=== PATIENT | male | born 1935 | race Caucasian/White ===

== ENCOUNTER 2017-07-09 18:01 | Inpatient (IN) | payer OTHER, BC ==
[~2017-07-09] VITALS: Ht 177.8 cm; Wt 85.7 kg
[~2017-07-09 18:01] MED LIST: ALLEGRA180 MG PO; AMOXICILLIN875 MG PO; AUGMENTIN875 MG PO; BENICAR HCT 201 EACH PO; BENICAR40 MG PO; CALAN SR,COVER240 MG PO; CICLODAN 8% K34.6 ML TP; CLONAZEPAM1 MG PO; CLOPIDOGREL75 MG PO; Cardura PO; Colace PO; DOXAZOSIN MESYLA4 MG PO; FLONASE16 G1 BOTH NARES; FLUTICASONE PRO30 GM IH; Flonase BOTH NARES; Glucotrol PO; JANTOVEN2.5 MG PO; LISINOPRIL10 MG PO; LOPRESSOR25 MG PO; LOSARTAN POTAS100 MG PO; Lopressor PO; MACROBID100 MG PO; METFORMIN HCL1000 MG PO; METOPROLOL TART25 MG PO; METOPROLOL TART50 MG PO; NIACIN500 M1 PO; NITROSTAT,NITR0.4 M1 SL; NORVASC5 MG PO; Oyst-Cal D, Oscal W/ PO; PERCOCET 5/31 TABLET PO; POTASSIUM CHLO20 MEQ PO; PRADAXA75 MG PO; PRAVACHOL20 MG PO; PRAVACHOL40 MG PO; Protonix PO; THERAGRAN1 TABLET PO; Tylenol Regular Stre PO; VERAPAMIL HCL240 M2 PO; VERELAN 240 MG240 MG PO; VITAMIN D-32000 UNI2 PO; VITAMIN E200 UNIT PO; ZANAFLEX4 MG PO; ZESTRIL,PRINIVI40 MG PO; predniSONE PO
[2017-07-09 18:37] LABS: ADD MIUA? YES; BILIRUBIN NEGATIVE; BLOOD NEGATIVE; COLOR YELLOW ((YELLOW)); GLUCOSE (STRIP) 50; KETONES NEGATIVE; LEUKOCYTES NEGATIVE; NITRITE NEGATIVE; PROTEIN (STRIP) >=500; SPECIFIC GRAVITY 1.015 (1.000-1.030); UROBILINOGEN 0.2 MG/DL (0.2-1.0)
[2017-07-09 18:45] LABS: BACTERIA RARE /HPF; EPITHELIAL CELLS RARE /HPF; MUCUS TRACE /LPF; RED BLOOD CELLS 0-5 /HPF (0-5); UCUL ADDED? NO; WHITE BLOOD CELLS 0-5 /HPF (0-5)
[2017-07-09 18:54] LABS: CHLORIDE 106 mEq/L (99-109); INTER. NORMALIZED RATIO 1.8; POTASSIUM 3.9 mEq/L (3.7-5.4); PROTHROMBIN TIME 20.4 SEC (10.2-12.9); SODIUM 143 mEq/L (136-147)
[2017-07-09 18:56] LABS: GLUCOSE 184 mg/dL (70-99); PTT 32.1 SEC (25-37)
[2017-07-09 18:58] LABS: ANION GAP 18 MEQ/L (2-14); HEMATOCRIT 44.5 % (38.0-50.0); MCH 28.6 PG (29.0-34.0); MCHC 32.4 G/DL (30.0-36.0); MCV 88.3 FL (86-99); RBC DIS.WIDTH-CV 14.1 % (11.8-14.6); RBC DIS.WIDTH-SD 45.3 % (39-53); RED BLOOD COUNT 5.04 M/uL (4.00-5.50); TOTAL BILIRUBIN 0.8 mg/dL (0.0-1.0); WHITE BLOOD COUNT 16.1 K/uL (4.1-10.2)
[2017-07-09 19:00] LABS: ALKALINE PHOSPHATASE 54 IU/L (3-129); GFR ESTIMATE (CALCULATED) 24 mL/min/
[2017-07-09 19:01] LABS: UREA NITROGEN (BUN) 42 mg/dL (9-23)
[2017-07-09 19:06] LABS: TROP-I INTERPRETATION NEGATIVE; TROPONIN-I 0.17 ng/mL (0.0-0.30)
[2017-07-09 19:57] LABS: EOSINOPHIL (%) 0.1 % (0-5); HEMATOLOGY COMMENT 1 SN; IMM.PLATELET FRACTION 23.8 (1-7); IMMATURE GRANULOCYTE (%) 0.7 % (0.0-0.7); IMMATURE GRANULOCYTE COUNT 0.1 K/uL; INSTRUMENT ABS NEUTROPHIL CT 14.4 K/uL; LYMPHOCYTE COUNT 0.5 K/uL (1.0-2.8); NEUTROPHIL (%) 89.6 % (45-76); NEUTROPHIL COUNT 14.4 K/uL (1.8-6.4); PLAT.SUFFICIENCY DECREASED; PLATELET COUNT 49 K/uL (156-360)
[2017-07-09 21:17] LABS: INFLUENZA A VIRAL ANTIGEN NEGATIVE; INFLUENZA B VIRAL ANTIGEN NEGATIVE
[2017-07-09 23:45] VITALS: BP 130/61
[2017-07-10 04:58] VITALS: BP 99/52
[2017-07-10 08:01] VITALS: BP 96/50
[2017-07-10 11:55] LABS: INTER. NORMALIZED RATIO 1.8; PROTHROMBIN TIME 20.5 SEC (10.2-12.9)
[2017-07-10 15:57] VITALS: BP 126/67
[2017-07-11 00:34] VITALS: BP 108/54
[2017-07-11 00:46] LABS: POINT-OF-CARE METER ID UU14208753; POINT-OF-CARE USER ID 606021424
[2017-07-11 04:17] VITALS: BP 135/58
[2017-07-11 06:36] LABS: INTER. NORMALIZED RATIO 1.6; PROTHROMBIN TIME 17.7 SEC (10.2-12.9)
[2017-07-11 06:37] LABS: ANION GAP 10 MEQ/L (2-14); CHLORIDE 110 MEQ/L (99-109); EOSINOPHIL (%) 0 % (0-5); GFR ESTIMATE (CALCULATED) 26 mL/min/; GLUCOSE 170 mg/dL (70-99); HEMATOCRIT 34.3 % (38.0-50.0); IMMATURE GRANULOCYTE (%) 1.5 % (0.0-0.7); IMMATURE GRANULOCYTE COUNT 0.1 K/uL; INSTRUMENT ABS NEUTROPHIL CT 4.1 K/uL; LYMPHOCYTE COUNT 0.9 K/uL (1.0-2.8); MCH 29.2 PG (29.0-34.0); MCHC 33.2 G/DL (30.0-36.0); MCV 87.9 FL (86-99); NEUTROPHIL COUNT 4.1 K/uL (1.8-6.4); POTASSIUM 3.7 MEQ/L (3.7-5.4); RBC DIS.WIDTH-CV 14.5 % (11.8-14.6); RBC DIS.WIDTH-SD 46.5 % (39-53); SAMPLE HEMOLYSIS CHECK 0; SAMPLE ICTERIC CHECK 0; SAMPLE LIPEMIA CHECK 0; SODIUM 142 MEQ/L (136-147); UREA NITROGEN (BUN) 52 mg/dL (9-23); WHITE BLOOD COUNT 6.1 K/uL (4.1-10.2)
[2017-07-11 06:44] LABS: IMM.PLATELET FRACTION 21.2 (1-7); PLAT.SUFFICIENCY DECREASED
[2017-07-11 06:46] LABS: PLATELET COUNT 20 K/uL (156-360)
[2017-07-11 07:08] VITALS: BP 114/53
[2017-07-11 12:27] LABS: HEMATOCRIT 35.6 % (38.0-50.0); MCH 28.9 PG (29.0-34.0); MCHC 32.9 G/DL (30.0-36.0); MCV 87.9 FL (86-99); RBC DIS.WIDTH-CV 14.4 % (11.8-14.6); RBC DIS.WIDTH-SD 46.8 % (39-53); RED BLOOD COUNT 4.05 M/uL (4.00-5.50); WHITE BLOOD COUNT 6.4 K/uL (4.1-10.2)
[2017-07-11 12:44] LABS: IMM.PLATELET FRACTION 21.6 (1-7); PLAT.SUFFICIENCY DECREASED; PLATELET COUNT 19 K/uL (156-360)
[2017-07-11 15:12] VITALS: BP 145/71
[2017-07-11 23:12] VITALS: BP 136/71
[2017-07-12 07:28] VITALS: BP 130/83
[2017-07-12 07:30] LABS: INTER. NORMALIZED RATIO 2.3; PROTHROMBIN TIME 26.6 SEC (10.2-12.9)
[2017-07-12 08:18] LABS: HEMATOCRIT 32.2 % (38.0-50.0); MCH 29.4 PG (29.0-34.0); MCHC 33.5 G/DL (30.0-36.0); MCV 87.7 FL (86-99); RBC DIS.WIDTH-CV 14.6 % (11.8-14.6); RBC DIS.WIDTH-SD 47.3 % (39-53); RED BLOOD COUNT 3.67 M/uL (4.00-5.50)
[2017-07-12 08:23] LABS: ANION GAP 10 MEQ/L (2-14); CHLORIDE 109 MEQ/L (99-109); GFR ESTIMATE (CALCULATED) 31 mL/min/; GLUCOSE 209 mg/dL (70-99); POTASSIUM 3.8 MEQ/L (3.7-5.4); SAMPLE HEMOLYSIS CHECK 0; SAMPLE ICTERIC CHECK 0; SAMPLE LIPEMIA CHECK 0; SODIUM 139 MEQ/L (136-147); UREA NITROGEN (BUN) 49 mg/dL (9-23)
[2017-07-12 08:37] LABS: IMM.PLATELET FRACTION 28.6 (1-7); PLAT.SUFFICIENCY VERY DECREASED
[2017-07-12 08:38] LABS: PLATELET COUNT 18 K/uL (156-360)
[2017-07-12] MEDS ORDERED: RANITIDINE HCL75 MG PO (15:20)
[2017-07-12] MEDS ORDERED: DIOVAN320 MG PO (15:21)
[2017-07-12] MEDS ORDERED: K-DUR20 MEQ PO (15:23)
[2017-07-12] MEDS ORDERED: VITAMIN C1000 MG PO (15:24)
[2017-07-12] MEDS ORDERED: LIPOIC ACID PO (15:25)
[2017-07-12] MEDS ORDERED: CHROMIUM PIC1000 MCG PO (15:26)
[2017-07-12] MEDS ORDERED: LUTEIN20 MG PO (15:26)
[2017-07-12] MEDS ORDERED: VITAMIN E400 UNIT PO (15:27)
[2017-07-12 15:36] VITALS: BP 143/71
[2017-07-12 21:20] LABS: BASE EXCESS -4.7 mEq/L (-3 to +3); BICARBONATE 18.8 mEq/L (22-26); CARBOXY HGB 1.6 % (0-5); METHEMOGLOBIN 1.8 % (0-1.5); PCO2 29 mm Hg (35-45); PO2 60 mm Hg (80-100); pH 7.42 (7.35-7.45)
[2017-07-12 21:21] LABS: COMMENTS - BLOOD GASES C+; DEVICE NCH; O2 FLOW 15 L/MIN; SITE RR
[2017-07-12 21:22] LABS: TOTAL RESP RATE 27 resp/min
[2017-07-12 23:39] VITALS: BP 126/61
[2017-07-13] VITALS (8 sets, daily range): BP systolic 108–156; BP diastolic 60–70
[2017-07-13 07:10] LABS: INTER. NORMALIZED RATIO 2.7; PROTHROMBIN TIME 31.2 SEC (10.2-12.9)
[2017-07-14 07:04] LABS: INTER. NORMALIZED RATIO 2.2; PROTHROMBIN TIME 25.2 SEC (10.2-12.9)
[2017-07-14 07:20] VITALS: BP 114/59
[2017-07-14 09:05] LABS: MCH 28.5 PG (29.0-34.0); MCHC 32.3 G/DL (30.0-36.0); MCV 88.2 FL (86-99); RBC DIS.WIDTH-CV 14.6 % (11.8-14.6); RBC DIS.WIDTH-SD 47.7 % (39-53); WHITE BLOOD COUNT 7.8 K/uL (4.1-10.2)
[2017-07-14 09:32] LABS: IMM.PLATELET FRACTION 25.1 (1-7); PLAT.SUFFICIENCY DECREASED
[2017-07-14 09:38] LABS: PLATELET COUNT 45 K/uL (156-360)
[2017-07-14 10:11] LABS: ANION GAP 11 MEQ/L (2-14); CHLORIDE 108 MEQ/L (99-109); GFR ESTIMATE (CALCULATED) 32 mL/min/; GLUCOSE 146 mg/dL (70-99); POTASSIUM 3.2 MEQ/L (3.7-5.4); SAMPLE HEMOLYSIS CHECK 0; SAMPLE ICTERIC CHECK 0; SAMPLE LIPEMIA CHECK 0; SODIUM 140 MEQ/L (136-147); UREA NITROGEN (BUN) 39 mg/dL (9-23)
[2017-07-14 11:12] VITALS: BP 113/60
[2017-07-14 16:07] VITALS: BP 146/67
[2017-07-14 23:24] VITALS: BP 121/62
[2017-07-15 07:27] LABS: HEMATOCRIT 28.4 % (38.0-50.0); IMM.RETIC FRACTION 22.3 % (3-19); MCH 28.1 PG (29.0-34.0); MCV 87.7 FL (86-99); MEAN PLAT.VOLUME 14.4 uM^3 (9.0-12.4); PLATELET COUNT 58 K/uL (156-360); RBC DIS.WIDTH-CV 14.6 % (11.8-14.6); RED BLOOD COUNT 3.24 M/uL (4.00-5.50); RETIC HGB EQUIVALENT 26.9 (28-36); RETICULOCYTE COUNT 0.9 % (0.5-1.8); WHITE BLOOD COUNT 9.3 K/uL (4.1-10.2)
[2017-07-15 07:33] LABS: INTER. NORMALIZED RATIO 1.7
[2017-07-15 07:52] LABS: ALKALINE PHOSPHATASE 46 IU/L (3-129); ANION GAP 10 MEQ/L (2-14); CHLORIDE 110 MEQ/L (99-109); DIRECT BILIRUBIN 0.1 mg/dL (0.0-0.3); GFR ESTIMATE (CALCULATED) 36 mL/min/; GLUCOSE 139 mg/dL (70-99); LACTATE DEHYDROGENASE 266 IU/L (20-246); POTASSIUM 3.5 MEQ/L (3.7-5.4); SAMPLE HEMOLYSIS CHECK 0; SAMPLE ICTERIC CHECK 0; SAMPLE LIPEMIA CHECK 0; SODIUM 142 MEQ/L (136-147); TOTAL BILIRUBIN 0.5 MG/DL (0.0-1.0); UREA NITROGEN (BUN) 37 mg/dL (9-23)
[2017-07-15 08:02] VITALS: BP 140/55
[2017-07-15 10:49] LABS: HIV INDEX 0.07; HIV-1/2 AB/AG COMBO Nonreactive; HPCA INDEX 0.13
[2017-07-15 11:57] VITALS: BP 128/62
[2017-07-15 16:23] VITALS: BP 148/65
[2017-07-15 20:20] VITALS: BP 136/56
[2017-07-16 00:09] VITALS: BP 158/70
[2017-07-16 06:47] LABS: HEMATOCRIT 27.6 % (38.0-50.0); MCH 28.3 PG (29.0-34.0); MCHC 32.2 G/DL (30.0-36.0); MCV 87.6 FL (86-99); MEAN PLAT.VOLUME 14.3 uM^3 (9.0-12.4); RBC DIS.WIDTH-CV 14.6 % (11.8-14.6); RED BLOOD COUNT 3.15 M/uL (4.00-5.50)
[2017-07-16 06:49] LABS: PLATELET COUNT 78 K/uL (156-360)
[2017-07-16 06:58] LABS: INTER. NORMALIZED RATIO 1.5
[2017-07-16 07:11] LABS: ANION GAP 9 MEQ/L (2-14); CHLORIDE 108 MEQ/L (99-109); GFR ESTIMATE (CALCULATED) 41 mL/min/; GLUCOSE 134 mg/dL (70-99); POTASSIUM 3.5 MEQ/L (3.7-5.4); SAMPLE HEMOLYSIS CHECK 0; SAMPLE ICTERIC CHECK 0; SAMPLE LIPEMIA CHECK 0; SODIUM 141 MEQ/L (136-147); UREA NITROGEN (BUN) 28 mg/dL (9-23)
[2017-07-16 07:38] LABS: ABS NEUTROPHIL COUNT 5.9; ANISOCYTOSIS 1+; BAND NEUTROPHILS 5.3 % (0-8.0); EOSINOPHIL ABS CT 0.1; EOSINOPHILS 0.9 % (0-5.0); INSTRUMENT ABS NEUTROPHIL CT 4.2 K/uL; LYMPHOCYTES 14.9 % (15.0-45.0); METAMYELOCYTES 0.9 %; MYELOCYTES 3.5 %; PLAT.SUFFICIENCY DECREASED; SEG.NEUTROPHILS 53.5 % (46.0-76.0)
[2017-07-16 08:27] VITALS: BP 163/74
[2017-07-16 12:29] VITALS: BP 187/82
[2017-07-16] MEDS ORDERED: ROCEPHIN500 MG IM (12:52)
[2017-07-16 16:30] VITALS: BP 170/77
[2017-07-16] MEDS ORDERED: GUAIFENESIN600 M1 PO (18:19)
[2017-07-16] MEDS ORDERED: DUONEB 2.5-0.5 M3 ML AEROSOL (18:20)
[2017-07-16] MEDS ORDERED: PEPCID20 MG PO (18:21)
[2017-07-16] MEDS ORDERED: TUMS500 MG PO (18:22)
[2017-07-16] MEDS ORDERED: COUMADIN2 MG PO (18:23)
[2017-07-16] MEDS ORDERED: PLAVIX75 MG PO (18:23)
[2017-07-16] MEDS ORDERED: NON-ASPIRIN325 MG PO (18:24)
[2017-07-26] MEDS ORDERED: COUMADIN2 MG PO (19:46)
[2017-07-26] MEDS ORDERED: FUROSEMIDE20 MG PO (19:46)
== END 2017-07-16 17:33 | DRG 871 ==
LOC: EME 18:01 → EDOF 20:39 → 3EAST 20:39 → ENRESERV 20:47 → 3EAST 23:38
PROVIDERS: Emergency Medicine; Family Medicine; Hospitalist; Internal Medicine; Physician Assistant
PROC: 30233R1 Transfusion of Nonautologous Platelets into Peripheral Vein, Percutaneous Approach (ICD-10-PCS; principal; 2017-07-13)
DX: A41.01 Sepsis due to Methicillin susceptible Staphylococcus aureus (principal); J15.211 Pneumonia due to Methicillin susceptible Staphylococcus aureus; R65.20 Severe sepsis without septic shock; G93.41 Metabolic encephalopathy; N17.9 Acute kidney failure, unspecified; J96.01 Acute respiratory failure with hypoxia; D69.59 Other secondary thrombocytopenia; E87.2 Acidosis; E87.70 Fluid overload, unspecified; I13.10 Hypertensive heart and chronic kidney disease without heart failure, with stage 1 through stage 4 chronic kidney disease, or unspecified chronic kidney disease; N18.2 Chronic kidney disease, stage 2 (mild); J44.0 Chronic obstructive pulmonary disease with (acute) lower respiratory infection; E11.22 Type 2 diabetes mellitus with diabetic chronic kidney disease; J98.11 Atelectasis; I25.10 Atherosclerotic heart disease of native coronary artery without angina pectoris; I48.0 Paroxysmal atrial fibrillation; E78.2 Mixed hyperlipidemia; K21.9 Gastro-esophageal reflux disease without esophagitis; N40.0 Benign prostatic hyperplasia without lower urinary tract symptoms; E66.9 Obesity, unspecified; Z68.27 Body mass index [BMI] 27.0-27.9, adult; Z79.01 Long term (current) use of anticoagulants; Z79.02 Long term (current) use of antithrombotics/antiplatelets; Z95.3 Presence of xenogenic heart valve; Z85.828 Personal history of other malignant neoplasm of skin; Z82.3 Family history of stroke; Z82.49 Family history of ischemic heart disease and other diseases of the circulatory system; Z83.3 Family history of diabetes mellitus; Z88.1 Allergy status to other antibiotic agents; Z88.2 Allergy status to sulfonamides
CPT/HCPCS: 36600; 70450; 71010; 71250; 74176; 80048; 80053; 80076; 81003; 82272; 82803; 82948; 83010 90; 83605; 83615; 84484; 85025; 85027; 85045; 85610; 85730; 86703; 86803; 86850; 86900; 86901; 87040; 87070; 87077; 87186; 87205; 87502; 87801; 93005; 93306; 94640; 94640 76; 94667; 94668; 94760; 94799; 99202; 99281; 99285; J0456; J0690; J0696; J1940; J2060; J3480; J7050; J7120; P9037; S0028

== ENCOUNTER 2017-07-29 19:53 | Inpatient (IN) | payer OTHER, BC ==
[~2017-07-29] VITALS: Ht 165.1 cm; Wt 84.7 kg
[~2017-07-29 19:53] MED LIST changes: +CHROMIUM PIC1000 MCG PO; +COUMADIN2 MG PO; +DIOVAN320 MG PO; +DUONEB 2.5-0.5 M3 ML AEROSOL; +FUROSEMIDE20 MG PO; +GUAIFENESIN600 M1 PO; +K-DUR20 MEQ PO; +LIPOIC ACID PO; +LUTEIN20 MG PO; +NON-ASPIRIN325 MG PO; +PEPCID20 MG PO; +PLAVIX75 MG PO; +RANITIDINE HCL75 MG PO; +ROCEPHIN500 MG IM; +TUMS500 MG PO; +VITAMIN C1000 MG PO; +VITAMIN E400 UNIT PO
[2017-07-29 21:21] LABS: EOSINOPHIL (%) 0.2 % (0-5); HEMATOCRIT 29.4 % (38.0-50.0); IMMATURE GRANULOCYTE (%) 1.3 % (0.0-0.7); IMMATURE GRANULOCYTE COUNT 0.1 K/uL; INSTRUMENT ABS NEUTROPHIL CT 4.4 K/uL; LYMPHOCYTE COUNT 0.5 K/uL (1.0-2.8); MCH 27.3 PG (29.0-34.0); MCHC 32.3 G/DL (30.0-36.0); MCV 84.5 FL (86-99); MEAN PLAT.VOLUME 12.5 uM^3 (9.0-12.4); MONOCYTE (%) 20.3 % (3-12); MONOCYTE COUNT 1.3 K/uL (0-0.8); NEUTROPHIL (%) 70.8 % (45-76); NEUTROPHIL COUNT 4.4 K/uL (1.8-6.4); PLATELET COUNT 95 K/uL (156-360); RBC DIS.WIDTH-SD 43.1 % (39-53); RED BLOOD COUNT 3.48 M/uL (4.00-5.50); WHITE BLOOD COUNT 6.3 K/uL (4.1-10.2)
[2017-07-29 21:37] LABS: CHLORIDE 106 mEq/L (99-109); POTASSIUM 4.2 mEq/L (3.7-5.4); SODIUM 137 mEq/L (136-147)
[2017-07-29 21:40] LABS: GLUCOSE 149 mg/dL (70-99)
[2017-07-29 21:41] LABS: ANION GAP 11 MEQ/L (2-14)
[2017-07-29 21:42] LABS: TOTAL BILIRUBIN 0.5 mg/dL (0.0-1.0)
[2017-07-29 21:43] LABS: ALKALINE PHOSPHATASE 54 IU/L (3-129)
[2017-07-29 21:44] LABS: GFR ESTIMATE (CALCULATED) 39 mL/min/
[2017-07-29 21:45] LABS: DIRECT BILIRUBIN 0.3 mg/dL (0.0-0.3); UREA NITROGEN (BUN) 31 mg/dL (9-23)
[2017-07-29 22:58] LABS: ADD MIUA? YES; BILIRUBIN NEGATIVE; BLOOD SMALL; COLOR YELLOW ((YELLOW)); GLUCOSE (STRIP) 50; KETONES 5; LEUKOCYTES NEGATIVE; NITRITE NEGATIVE; PROTEIN (STRIP) 100; SPECIFIC GRAVITY 1.013 (1.000-1.030); UROBILINOGEN 0.2 MG/DL (0.2-1.0)
[2017-07-29 23:17] LABS: BACTERIA RARE /HPF; EPITHELIAL CELLS RARE /HPF; MUCUS NONE SEEN /LPF; RED BLOOD CELLS RARE /HPF (0-5); UCUL ADDED? NO; WHITE BLOOD CELLS 0-5 /HPF (0-5)
[2017-07-29 23:18] LABS: CRYSTALS PRESENT
[2017-07-29 23:19] LABS: AMORPHOUS URATES CRYSTALS 3+; CASTS PRESENT /LPF; HYALINE CASTS 0-5 /LPF
[2017-07-30 00:15] LABS: INTER. NORMALIZED RATIO 1.4
[2017-07-30 02:55] VITALS: BP 95/45
[2017-07-30 06:54] LABS: POINT-OF-CARE METER ID UU14117124
[2017-07-30 07:08] LABS: HEMATOCRIT 27.2 % (38.0-50.0); MCH 27.4 PG (29.0-34.0); MCV 85.8 FL (86-99); RBC DIS.WIDTH-SD 44.1 % (39-53); RED BLOOD COUNT 3.17 M/uL (4.00-5.50); WHITE BLOOD COUNT 9.1 K/uL (4.1-10.2)
[2017-07-30 07:31] LABS: EOSINOPHIL (%) 0.1 % (0-5); IMMATURE GRANULOCYTE (%) 1.4 % (0.0-0.7); IMMATURE GRANULOCYTE COUNT 0.1 K/uL; INSTRUMENT ABS NEUTROPHIL CT 6.2 K/uL; LYMPHOCYTE COUNT 0.9 K/uL (1.0-2.8); MONOCYTE COUNT 1.8 K/uL (0-0.8); NEUTROPHIL (%) 68.5 % (45-76); NEUTROPHIL COUNT 6.2 K/uL (1.8-6.4)
[2017-07-30 07:32] LABS: MEAN PLAT.VOLUME 13.4 uM^3 (9.0-12.4); PLATELET COUNT 83 K/uL (156-360)
[2017-07-30 08:14] VITALS: BP 128/81
[2017-07-30 08:18] LABS: ALKALINE PHOSPHATASE 41 IU/L (3-129); ANION GAP 11 MEQ/L (2-14); CHLORIDE 110 MEQ/L (99-109); GFR ESTIMATE (CALCULATED) 36 mL/min/; GLUCOSE 139 mg/dL (70-99); POTASSIUM 4.2 MEQ/L (3.7-5.4); SAMPLE HEMOLYSIS CHECK 0; SAMPLE ICTERIC CHECK 0; SAMPLE LIPEMIA CHECK 0; SODIUM 139 MEQ/L (136-147); TOTAL BILIRUBIN 0.4 MG/DL (0.0-1.0); UREA NITROGEN (BUN) 30 mg/dL (9-23)
[2017-07-30 12:08] LABS: POINT-OF-CARE METER ID UU14149397
[2017-07-30 12:34] VITALS: BP 137/64
[2017-07-30 16:06] LABS: POINT-OF-CARE METER ID UU14188577
[2017-07-30 16:19] VITALS: BP 124/57
[2017-07-30 19:46] VITALS: BP 128/59
[2017-07-30 21:35] LABS: POINT-OF-CARE METER ID UU14208753
[2017-07-30 23:14] VITALS: BP 130/61
[2017-07-31 03:40] VITALS: BP 116/58
[2017-07-31 07:31] VITALS: BP 144/64
[2017-07-31 08:03] LABS: POINT-OF-CARE METER ID UU13113717
[2017-07-31 11:36] VITALS: BP 130/65
[2017-07-31 12:13] LABS: POINT-OF-CARE METER ID UU13113717
[2017-07-31 15:54] VITALS: BP 132/60
[2017-07-31 17:37] LABS: POINT-OF-CARE METER ID UU14188625
[2017-07-31 19:23] VITALS: BP 125/60
[2017-07-31 21:01] LABS: POINT-OF-CARE METER ID UU14174225
[2017-07-31 23:47] VITALS: BP 159/73
[2017-08-01 03:15] VITALS: BP 169/87
[2017-08-01 06:22] LABS: HEMATOCRIT 25.2 % (38.0-50.0); IMMATURE GRANULOCYTE (%) 3.6 % (0.0-0.7); IMMATURE GRANULOCYTE COUNT 0.1 K/uL; INSTRUMENT ABS NEUTROPHIL CT 0.6 K/uL; LYMPHOCYTE COUNT 1.5 K/uL (1.0-2.8); MCH 26.9 PG (29.0-34.0); MCHC 31.3 G/DL (30.0-36.0); MCV 85.7 FL (86-99); MEAN PLAT.VOLUME 13.6 uM^3 (9.0-12.4); MONOCYTE (%) 24.4 % (3-12); MONOCYTE COUNT 0.7 K/uL (0-0.8); NEUTROPHIL (%) 19.8 % (45-76); NEUTROPHIL COUNT 0.6 K/uL (1.8-6.4); NRBC (%) 0.7 /100 WBC (0-0); PLATELET COUNT 64 K/uL (156-360); RBC DIS.WIDTH-CV 13.9 % (11.8-14.6); RBC DIS.WIDTH-SD 43.9 % (39-53); RED BLOOD COUNT 2.94 M/uL (4.00-5.50)
[2017-08-01 07:29] LABS: POINT-OF-CARE METER ID UU13113717
[2017-08-01 07:40] VITALS: BP 155/67
[2017-08-01 10:47] LABS: ANION GAP 11 MEQ/L (2-14); CHLORIDE 114 MEQ/L (99-109); GFR ESTIMATE (CALCULATED) 48 mL/min/; GLUCOSE 110 mg/dL (70-99); POTASSIUM 4.1 MEQ/L (3.7-5.4); SAMPLE HEMOLYSIS CHECK 0; SAMPLE ICTERIC CHECK 0; SAMPLE LIPEMIA CHECK 0; SODIUM 145 MEQ/L (136-147); UREA NITROGEN (BUN) 27 mg/dL (9-23)
[2017-08-01 11:24] LABS: POINT-OF-CARE METER ID UU14174225
[2017-08-01 11:35] VITALS: BP 160/71
[2017-08-01 15:29] VITALS: BP 165/67
[2017-08-01 17:03] LABS: POINT-OF-CARE METER ID UU13113717
[2017-08-01 19:57] VITALS: BP 186/76
[2017-08-01 21:18] LABS: POINT-OF-CARE METER ID UU14188625
[2017-08-01 23:21] VITALS: BP 134/59
[2017-08-02 03:13] VITALS: BP 132/62
[2017-08-02 06:59] LABS: HEMATOCRIT 25.8 % (38.0-50.0); IMMATURE GRANULOCYTE COUNT 0.1 K/uL; INSTRUMENT ABS NEUTROPHIL CT 0.9 K/uL; LYMPHOCYTE COUNT 1.5 K/uL (1.0-2.8); MCH 26.8 PG (29.0-34.0); MCV 86.3 FL (86-99); MEAN PLAT.VOLUME 12.5 uM^3 (9.0-12.4); MONOCYTE (%) 14.8 % (3-12); MONOCYTE COUNT 0.4 K/uL (0-0.8); NEUTROPHIL (%) 28.7 % (45-76); NEUTROPHIL COUNT 0.9 K/uL (1.8-6.4); PLATELET COUNT 58 K/uL (156-360); RBC DIS.WIDTH-CV 13.7 % (11.8-14.6); RBC DIS.WIDTH-SD 43.1 % (39-53); RED BLOOD COUNT 2.99 M/uL (4.00-5.50)
[2017-08-02 07:51] VITALS: BP 150/59
[2017-08-02 08:06] LABS: POINT-OF-CARE METER ID UU13113717
[2017-08-02 08:35] LABS: CHLORIDE 111 MEQ/L (99-109); GFR ESTIMATE (CALCULATED) 52 mL/min/; GLUCOSE 105 mg/dL (70-99); IRON 141 MCG/DL (35-150); POTASSIUM 3.6 MEQ/L (3.7-5.4); SODIUM 145 MEQ/L (136-147); UREA NITROGEN (BUN) 20 mg/dL (9-23)
[2017-08-02 12:03] VITALS: BP 165/68
[2017-08-02 12:30] LABS: POINT-OF-CARE METER ID UU14188625
[2017-08-02 16:41] VITALS: BP 160/65
[2017-08-02 19:43] VITALS: BP 169/74
[2017-08-02 21:23] LABS: POINT-OF-CARE METER ID UU14174225
[2017-08-02 23:30] VITALS: BP 155/80
[2017-08-03 03:49] VITALS: BP 186/88
[2017-08-03 06:40] LABS: INTER. NORMALIZED RATIO 1.3; PROTHROMBIN TIME 14.7 SEC (10.2-12.9)
[2017-08-03 06:43] LABS: PTT 84.7 SEC (25-37)
[2017-08-03 07:58] VITALS: BP 168/66
[2017-08-03 08:49] LABS: POINT-OF-CARE METER ID UU13113717
[2017-08-03 09:01] LABS: HEMATOCRIT 28.3 % (38.0-50.0); MCH 27.5 PG (29.0-34.0); MCHC 31.4 G/DL (30.0-36.0); MCV 87.3 FL (86-99); MEAN PLAT.VOLUME 12.8 uM^3 (9.0-12.4); PLATELET COUNT 60 K/uL (156-360); RBC DIS.WIDTH-CV 14.1 % (11.8-14.6); RBC DIS.WIDTH-SD 44.9 % (39-53); RED BLOOD COUNT 3.24 M/uL (4.00-5.50); WHITE BLOOD COUNT 3.7 K/uL (4.1-10.2)
[2017-08-03 09:25] LABS: ANION GAP 9 MEQ/L (2-14); CHLORIDE 107 MEQ/L (99-109); GFR ESTIMATE (CALCULATED) 52 mL/min/; GLUCOSE 99 mg/dL (70-99); POTASSIUM 3.4 MEQ/L (3.7-5.4); SAMPLE HEMOLYSIS CHECK 0; SAMPLE ICTERIC CHECK 0; SAMPLE LIPEMIA CHECK 0; SODIUM 143 MEQ/L (136-147); UREA NITROGEN (BUN) 18 mg/dL (9-23)
[2017-08-03 11:45] VITALS: BP 182/64
[2017-08-03 12:32] LABS: POINT-OF-CARE METER ID UU13113717
[2017-08-03 14:55] VITALS: BP 176/72
[2017-08-03 17:05] LABS: POINT-OF-CARE METER ID UU14188625
[2017-08-03 19:50] VITALS: BP 165/63
[2017-08-03 21:06] LABS: POINT-OF-CARE METER ID UU14188625
[2017-08-04 00:39] VITALS: BP 185/70
[2017-08-04 04:03] VITALS: BP 178/71
[2017-08-04 04:59] VITALS: BP 156/83
[2017-08-04 06:34] LABS: HEMATOCRIT 24.4 % (38.0-50.0); MCH 27.1 PG (29.0-34.0); MCHC 31.6 G/DL (30.0-36.0); MCV 85.9 FL (86-99); RBC DIS.WIDTH-CV 13.9 % (11.8-14.6); RBC DIS.WIDTH-SD 43.2 % (39-53); RED BLOOD COUNT 2.84 M/uL (4.00-5.50); WHITE BLOOD COUNT 4.5 K/uL (4.1-10.2)
[2017-08-04 07:15] LABS: MEAN PLAT.VOLUME 11.9 uM^3 (9.0-12.4); PLATELET COUNT 56 K/uL (156-360)
[2017-08-04 08:08] VITALS: BP 139/84
[2017-08-04 08:39] LABS: POINT-OF-CARE METER ID UU13113717
[2017-08-04 11:44] VITALS: BP 140/78
[2017-08-04 12:27] LABS: POINT-OF-CARE METER ID UU14188625
[2017-08-04 16:45] LABS: POINT-OF-CARE METER ID UU14188625
[2017-08-04 17:54] LABS: INTER. NORMALIZED RATIO 1.2; PROTHROMBIN TIME 14.3 SEC (10.2-12.9)
[2017-08-04 19:46] VITALS: BP 178/68
[2017-08-04 20:50] LABS: POINT-OF-CARE METER ID UU13113717
[2017-08-05] VITALS (7 sets, daily range): BP systolic 127–198; BP diastolic 62–88
[2017-08-05 08:00] LABS: POINT-OF-CARE METER ID UU13113717
[2017-08-05 08:54] LABS: ANION GAP 8 MEQ/L (2-14); CHLORIDE 107 MEQ/L (99-109); GFR ESTIMATE (CALCULATED) 48 mL/min/; GLUCOSE 91 mg/dL (70-99); POTASSIUM 3.4 MEQ/L (3.7-5.4); SAMPLE HEMOLYSIS CHECK 0; SAMPLE ICTERIC CHECK 0; SAMPLE LIPEMIA CHECK 0; SODIUM 142 MEQ/L (136-147); UREA NITROGEN (BUN) 20 mg/dL (9-23)
[2017-08-05 08:58] LABS: INTER. NORMALIZED RATIO 1.2; PROTHROMBIN TIME 13.6 SEC (10.2-12.9)
[2017-08-05 09:10] LABS: HEMATOCRIT 26.1 % (38.0-50.0); MCH 27.2 PG (29.0-34.0); MCV 87.6 FL (86-99); MEAN PLAT.VOLUME 13.2 uM^3 (9.0-12.4); PLATELET COUNT 63 K/uL (156-360); RBC DIS.WIDTH-CV 14.3 % (11.8-14.6); RBC DIS.WIDTH-SD 44.6 % (39-53); RED BLOOD COUNT 2.98 M/uL (4.00-5.50); WHITE BLOOD COUNT 5.1 K/uL (4.1-10.2)
[2017-08-05 09:42] LABS: ABS NEUTROPHIL COUNT 2.8; ANISOCYTOSIS 1+; EOSINOPHIL ABS CT 0; EOSINOPHILS 0.9 % (0-5.0); HYPOCHROMASIA 1+; INSTRUMENT ABS NEUTROPHIL CT 2.2 K/uL; LYMPHOCYTES 31.8 % (15.0-45.0); METAMYELOCYTES 1.8 %; MYELOCYTES 5.3 %; NUCLEATED RBC'S 0.9; PLAT.SUFFICIENCY DECREASED; POIKILOCYTOSIS 1+; POLYCHROMASIA 1+
[2017-08-05 12:30] LABS: POINT-OF-CARE METER ID UU14174225
[2017-08-05 17:08] LABS: POINT-OF-CARE METER ID UU13113717
[2017-08-05 21:30] LABS: POINT-OF-CARE METER ID UU13113717; POINT-OF-CARE USER ID 603211116
[2017-08-06 00:22] VITALS: BP 154/70
[2017-08-06 04:01] VITALS: BP 160/71
[2017-08-06 06:15] LABS: HEMATOCRIT 26.1 % (38.0-50.0); MCH 27.5 PG (29.0-34.0); MCHC 31.4 G/DL (30.0-36.0); MCV 87.6 FL (86-99); PLATELET COUNT 69 K/uL (156-360); RBC DIS.WIDTH-CV 14.3 % (11.8-14.6); RBC DIS.WIDTH-SD 45.1 % (39-53); RED BLOOD COUNT 2.98 M/uL (4.00-5.50)
[2017-08-06 06:25] LABS: INTER. NORMALIZED RATIO 1.2
[2017-08-06 07:16] LABS: POINT-OF-CARE METER ID UU14174225
[2017-08-06 07:18] LABS: ANION GAP 9 MEQ/L (2-14); CHLORIDE 110 MEQ/L (99-109); GFR ESTIMATE (CALCULATED) 44 mL/min/; GLUCOSE 116 mg/dL (70-99); POTASSIUM 3.8 MEQ/L (3.7-5.4); SAMPLE HEMOLYSIS CHECK 0; SAMPLE ICTERIC CHECK 0; SAMPLE LIPEMIA CHECK 0; SODIUM 142 MEQ/L (136-147); UREA NITROGEN (BUN) 18 mg/dL (9-23)
[2017-08-06 07:22] VITALS: BP 154/72
[2017-08-06] MEDS ORDERED: FUROSEMIDE20 MG PO (08:53)
[2017-08-06] MEDS ORDERED: AMLODIPINE BESY10 MG PO (08:53)
[2017-08-06 10:54] VITALS: BP 158/62
[2017-08-06] MEDS ORDERED: COUMADIN3 MG PO (11:28)
[2017-08-06 12:37] LABS: POINT-OF-CARE METER ID UU14174225
[2017-08-06 17:20] LABS: POINT-OF-CARE METER ID UU14174225
[2017-08-06 21:44] LABS: POINT-OF-CARE METER ID UU13113717
[2017-08-07 06:58] LABS: INTER. NORMALIZED RATIO 1.3; PROTHROMBIN TIME 14.4 SEC (10.2-12.9)
[2017-08-07 08:00] VITALS: BP 186/74
[2017-08-07 08:13] LABS: POINT-OF-CARE METER ID UU13113717
== END 2017-08-07 12:30 | disposition home health service (06) | DRG 871 ==
LOC: EME → EDBD 19:53 → EME 19:53 → 3EAST 07-30 00:27 → 5SOUTH 07-30 00:27 → EDOF 07-30 00:27 → ENRESERV 07-30 00:31 → 3EAST 07-30 02:13 → ENRESERV 07-30 21:09 → 5SOUTH 07-30 23:48
PROVIDERS: Emergency Medicine; Hospitalist; Internal Medicine; Internal Medicine Cardiovascular Disease; Physician Assistant Medical
DX: A41.01 Sepsis due to Methicillin susceptible Staphylococcus aureus (principal); J96.01 Acute respiratory failure with hypoxia; N17.9 Acute kidney failure, unspecified; J21.9 Acute bronchiolitis, unspecified; I16.0 Hypertensive urgency; I13.0 Hypertensive heart and chronic kidney disease with heart failure and stage 1 through stage 4 chronic kidney disease, or unspecified chronic kidney disease; I50.9 Heart failure, unspecified; E11.22 Type 2 diabetes mellitus with diabetic chronic kidney disease; N18.3 Chronic kidney disease, stage 3 (moderate); D69.59 Other secondary thrombocytopenia; D64.9 Anemia, unspecified; E78.5 Hyperlipidemia, unspecified; I25.10 Atherosclerotic heart disease of native coronary artery without angina pectoris; I35.0 Nonrheumatic aortic (valve) stenosis; I48.2 Chronic atrial fibrillation; K21.9 Gastro-esophageal reflux disease without esophagitis; K44.9 Diaphragmatic hernia without obstruction or gangrene; F32.9 Major depressive disorder, single episode, unspecified; G89.29 Other chronic pain; I44.0 Atrioventricular block, first degree; I45.2 Bifascicular block; R91.1 Solitary pulmonary nodule; Z85.828 Personal history of other malignant neoplasm of skin; Z87.891 Personal history of nicotine dependence; Z90.79 Acquired absence of other genital organ(s); Z95.2 Presence of prosthetic heart valve; Z79.02 Long term (current) use of antithrombotics/antiplatelets; Z88.1 Allergy status to other antibiotic agents; Z88.2 Allergy status to sulfonamides
CPT/HCPCS: 71020; 71250; 74176; 76937; 78582; 80048; 80053; 80076; 81003; 82607; 82746; 82948; 83540; 83605; 83880; 84466; 85025; 85027; 85379; 85610; 85651; 85730; 87040; 87070; 87077; 87186; 87205; 87502; 87801; 93005; 93312; 94799; 99281; 99285; A9540; A9567; J0696; J1815; J1885; J2250; J2310; J2543; J3010; J3370; J7030; J7050; J7120; S0032

== ENCOUNTER → 2017-08-18 | Outpatient (CLI) | payer OTHER, BC ==
[~2017-08-18] MED LIST changes: +AMLODIPINE BESY10 MG PO; +COUMADIN3 MG PO
== END | disposition home or self-care (01) ==
LOC: PICC 10:50
DX: A41.01 Sepsis due to Methicillin susceptible Staphylococcus aureus (principal)

== ENCOUNTER 2017-08-25 20:16 | Emergency (ER) | payer OTHER, BC ==
[~2017-08-25] VITALS: Ht 170.2 cm; Wt 89.8 kg
[2017-08-25 21:51] LABS: HEMATOCRIT 30.6 % (38.0-50.0); MCH 28.3 PG (29.0-34.0); MCHC 31.4 G/DL (30.0-36.0); MCV 90.3 FL (86-99); MEAN PLAT.VOLUME 13.1 uM^3 (9.0-12.4); PLATELET COUNT 78 K/uL (156-360); RBC DIS.WIDTH-CV 18.5 % (11.8-14.6); RBC DIS.WIDTH-SD 61.4 % (39-53); RED BLOOD COUNT 3.39 M/uL (4.00-5.50); WHITE BLOOD COUNT 3.7 K/uL (4.1-10.2)
[2017-08-25 22:02] LABS: CHLORIDE 109 mEq/L (99-109); POTASSIUM 3.1 mEq/L (3.7-5.4); SODIUM 142 mEq/L (136-147)
[2017-08-25 22:04] LABS: GLUCOSE 157 mg/dL (70-99)
[2017-08-25 22:05] LABS: ANION GAP 11 MEQ/L (2-14)
[2017-08-25] MEDS ORDERED: CICLODAN6.6 ML TP (22:07)
[2017-08-25 22:08] LABS: GFR ESTIMATE (CALCULATED) 48 mL/min/
[2017-08-25] MEDS ORDERED: CINNAMON500 MG PO (22:08)
[2017-08-25 22:09] LABS: UREA NITROGEN (BUN) 20 mg/dL (9-23)
[2017-08-25] MEDS ORDERED: WARFARIN SODIU2.5 MG PO (22:10)
[2017-08-25] MEDS ORDERED: COUMADIN2.5 MG PO (22:10)
[2017-08-25 22:12] LABS: TROP-I INTERPRETATION NEGATIVE; TROPONIN-I 0.05 ng/mL (0.0-0.30)
[2017-08-25] MEDS ORDERED: AMLODIPINE BESY10 MG PO (22:23)
[2017-08-25] MEDS ORDERED: FUROSEMIDE20 MG PO (22:24)
[2017-08-25] MEDS ORDERED: BENICAR20 MG PO (22:25)
[2017-08-25] MEDS ORDERED: HAWTHORN BERRI565 MG PO (22:26)
[2017-08-25 22:42] LABS: EOSINOPHIL (%) 3.2 % (0-5); EOSINOPHIL COUNT 0.1 K/uL (0-0.3); IMMATURE GRANULOCYTE (%) 0.5 % (0.0-0.7); INSTRUMENT ABS NEUTROPHIL CT 1.2 K/uL; LYMPHOCYTE COUNT 1.6 K/uL (1.0-2.8); MONOCYTE (%) 18.9 % (3-12); MONOCYTE COUNT 0.7 K/uL (0-0.8); NEUTROPHIL (%) 32.5 % (45-76); NEUTROPHIL COUNT 1.2 K/uL (1.8-6.4)
[2017-08-26 00:08] LABS: INTER. NORMALIZED RATIO 1.2; PROTHROMBIN TIME 13.7 SEC (10.2-12.9)
[2017-08-26 00:16] LABS: PTT 30.9 SEC (25-37)
[2017-08-26 00:49] LABS: TROP-I INTERPRETATION NEGATIVE; TROPONIN-I 0.06 ng/mL (0.0-0.30)
[2017-08-26 02:00] VITALS: BP 155/69
== END 2017-08-26 02:05 | disposition home or self-care (01) ==
LOC: EME 20:16
PROVIDERS: Emergency Medicine
DX: I10 Essential (primary) hypertension (principal); R06.02 Shortness of breath; Z95.2 Presence of prosthetic heart valve; I44.4 Left anterior fascicular block; Z79.01 Long term (current) use of anticoagulants; Z79.02 Long term (current) use of antithrombotics/antiplatelets; Z88.1 Allergy status to other antibiotic agents; Z88.2 Allergy status to sulfonamides; Z87.891 Personal history of nicotine dependence
CPT/HCPCS: 71020; 80048; 83880; 84484; 85025; 85610; 85730; 93005

== ENCOUNTER 2017-10-31 06:55 | Emergency (ER) | payer OTHER, BC ==
[~2017-10-31] VITALS: Ht 170.2 cm; Wt 83.2 kg
[~2017-10-31 06:55] MED LIST changes: +BENICAR20 MG PO; +CICLODAN6.6 ML TP; +CINNAMON500 MG PO; +COUMADIN2.5 MG PO; +HAWTHORN BERRI565 MG PO; +WARFARIN SODIU2.5 MG PO
[2017-10-31 07:49] LABS: PTT 40.9 SEC (25-37)
[2017-10-31 07:50] LABS: INTER. NORMALIZED RATIO 3.4
[2017-10-31 08:10] VITALS: BP 118/65
== END 2017-10-31 08:11 | disposition home or self-care (01) ==
LOC: EME 06:55
PROVIDERS: Nurse Practitioner Family
DX: R04.0 Epistaxis (principal); I48.91 Unspecified atrial fibrillation; Z79.01 Long term (current) use of anticoagulants; I11.0 Hypertensive heart disease with heart failure; I50.9 Heart failure, unspecified; E78.5 Hyperlipidemia, unspecified; E11.9 Type 2 diabetes mellitus without complications; I35.0 Nonrheumatic aortic (valve) stenosis; F32.9 Major depressive disorder, single episode, unspecified; Z88.2 Allergy status to sulfonamides; Z88.1 Allergy status to other antibiotic agents; Z87.891 Personal history of nicotine dependence
CPT/HCPCS: 85610; 85730; 99281; 99283

== ENCOUNTER 2017-11-12 04:37 | Inpatient (IN) | payer OTHER, BC ==
[2017-11-12] VITALS (9 sets, daily range): BP systolic 134–193; BP diastolic 61–92
[~2017-11-12] VITALS: Ht 177.8 cm; Wt 85.9 kg
[2017-11-12 05:28] LABS: INTER. NORMALIZED RATIO 4.3
[2017-11-12 05:30] LABS: PTT 41.4 SEC (25-37)
[2017-11-12 05:37] LABS: ALBUMIN 3.6 g/dL (3.2-4.8); CHLORIDE 111 mEq/L (99-109); POTASSIUM 4.1 mEq/L (3.7-5.4); SODIUM 140 mEq/L (136-147)
[2017-11-12 05:39] LABS: GLUCOSE 123 mg/dL (70-99); TOTAL PROTEIN 7.5 g/dL (6.4-8.3)
[2017-11-12 05:41] LABS: TOTAL BILIRUBIN 0.4 mg/dL (0.0-1.0)
[2017-11-12 05:43] LABS: ALKALINE PHOSPHATASE 84 IU/L (3-129); CREATININE 1.4 mg/dL (0.6-1.3); GFR ESTIMATE (CALCULATED) 52 mL/min/ (58.99-99999)
[2017-11-12 05:44] LABS: TROP-I INTERPRETATION NEGATIVE; TROPONIN-I 0.04 ng/mL (0.0-0.30); UREA NITROGEN (BUN) 26 mg/dL (9-23)
[2017-11-12 05:45] LABS: AST (GOT) 21 IU/L (2-34)
[2017-11-12 05:46] LABS: ALT (GPT) 15 IU/L (3-49); HEMATOCRIT 36.2 % (38.0-50.0); HEMOGLOBIN 11.7 G/DL (12.5-16.6); LIPASE 102 U/L (1.0-51.0); MCH 27.8 PG (29.0-34.0); MCHC 32.3 G/DL (30.0-36.0); PLATELET COUNT 72 K/uL (156-360); RBC DIS.WIDTH-CV 14.7 % (11.8-14.6); RBC DIS.WIDTH-SD 46.7 % (39-53); RED BLOOD COUNT 4.21 M/uL (4.00-5.50); WHITE BLOOD COUNT 4.3 K/uL (4.1-10.2)
== END 2017-11-12 16:25 | DRG 65 ==
LOC: EME → EDBD 04:37 → EME 04:37 → 4WEST 07:23 → EDOF 07:23 → ENRESERV 07:24 → 4WEST 08:15 → ENRESERV 13:01 → 4WEST 14:19 → 5EAST 15:49
PROVIDERS: Emergency Medicine
PROC: 30233K1 Transfusion of Nonautologous Frozen Plasma into Peripheral Vein, Percutaneous Approach (ICD-10-PCS; principal; 2017-11-12)
DX: I61.8 Other nontraumatic intracerebral hemorrhage (principal); R40.20 Unspecified coma; I11.0 Hypertensive heart disease with heart failure; I16.1 Hypertensive emergency; I50.9 Heart failure, unspecified; D68.9 Coagulation defect, unspecified; R29.810 Facial weakness; N28.9 Disorder of kidney and ureter, unspecified; E11.9 Type 2 diabetes mellitus without complications; E78.5 Hyperlipidemia, unspecified; I35.0 Nonrheumatic aortic (valve) stenosis; I44.0 Atrioventricular block, first degree; M54.9 Dorsalgia, unspecified; Z66 Do not resuscitate; Z51.5 Encounter for palliative care; F32.9 Major depressive disorder, single episode, unspecified; Z95.2 Presence of prosthetic heart valve; Z79.01 Long term (current) use of anticoagulants; Z79.02 Long term (current) use of antithrombotics/antiplatelets; Z87.891 Personal history of nicotine dependence; Z85.828 Personal history of other malignant neoplasm of skin
CPT/HCPCS: 70450; 71045; 80053; 83605; 83690; 84484; 85027; 85610; 85730; 86850; 86900; 86901; 87040; 87641; 93005; 99281; 99285; J2060; J2270; J3430; J7050; P9017